=== PATIENT | female | born 1980 | race Caucasian/White ===

== ENCOUNTER 2017-06-22 15:42 | Emergency (ER) | payer BC ==
[2017-06-22 16:01] VITALS: BP 129/79
--- NOTE | 2017-06-22 16:26 | EDM.PDOC ---
ED HPI GENERAL MEDICAL PROBLEM - General Chief Complaint: ENT Problem Stated Complaint: STREP THROAT Time Seen by Provider: 06/22/17 16:10 Source of Information: Reports: Patient History Limitations: Reports: No Limitations - History of Present Illness INITIAL COMMENTS - FREE TEXT/NARRATIVE: Darlyn is a pleasant 37yo female here with 3 + day hx of worsening sore throat, ear pain, cough, headache. She has felt chilled, then hot but has not checked her temp. She has sinus pressure and associated headache. She looked in her throat this morning and saw white patches and thought she may have strep throat. She is here for testing for strep throat. She did get a flu shot. She is otherwise healthy. No chronic medical problems. Onset: Gradual Duration: Day(s): (3+) Location: Reports: Head, Other (throat, ear pain, sinus congestion/pain) Throat Pain Score (Numeric/FACES): 6 - Related Data Allergies Allergy/AdvReac Type Severity Reaction Status Date / Time codeine Allergy Nausea and Verified 06/22/17 15:56 Vomiting Home Meds: Home Meds Montelukast Sodium [Singulair] 10 mg PO DAILY 05/21/14 [History] Venlafaxine [Effexor XR] 75 mg PO DAILY 06/22/17 [History] Past Medical History Respiratory History: Reports: Asthma [employer] History: Reports: Psychiatric History: Reports: Anxiety - Past Surgical History HEENT Surgical History: Reports: SHYLA Social & Family History - Family History Family Medical History: Noncontributory Oncologic: Reports: Breast, Colon - Tobacco Use Smoking Status *Q: Current Some Day Smoker Years of Tobacco use: 20 Packs/Tins Daily: 0.5 Second Hand Smoke Exposure: No - Caffeine Use Caffeine Use: Reports: None - Alcohol Use Days Per Week of Alcohol Use: 0 - Recreational Drug Use Recreational Drug Use: No - Living Situation & Occupation Living situation: Reports: Occupation: Employed ED ROS ENT - Review of Systems Review Of Systems: See Below Constitutional: Reports: Chills, Malaise, Fatigue, Decreased Appetite HEENT: Reports: Ear Pain, Rhinitis, Sinus Problem, Throat Pain Respiratory: Reports: Cough. Denies: Shortness of Breath, Pleuritic Chest Pain , Sputum Cardiovascular: Reports: No Symptoms GI/Abdominal: Reports: No Symptoms Musculoskeletal: Reports: Other (myalgias) Psychiatric: Reports: No Symptoms ED EXAM, ENT - Physical Exam Exam: See Below Exam Limited By: No Limitations General Appearance: Alert, WD/WN, No Apparent Distress Eye Exam: Bilateral Eye: EOMI, PERRL Ears: Normal External Exam, Hearing Grossly Normal, TM Dullness, TM Erythema, TM Fluid Nose: Normal Inspection, Normal Mucousa Mouth/Throat: Normal Lips, Normal Teeth, Pharyngeal Erythema, Tonsillar Erythema , Tonsillar Exudates, Tonsillar Swelling Head: Atraumatic, Normocephalic Neck: Normal Inspection, Lymphadenopathy (L), Lymphadenopathy (R) Respiratory/Chest: No Respiratory Distress, Lungs Clear, Normal Breath Sounds Cardiovascular: Normal Peripheral Pulses, Regular Rate, Rhythm, No Edema GI/Abdominal: Normal Bowel Sounds, Soft, Non-Tender (Female) Exam: Deferred Rectal (Female) Exam: Deferred Extremities: Normal Inspection, Normal Capillary Refill Neurological: Alert, Oriented, CN II-XII Intact Skin: Warm, Dry, Intact Course - Vital Signs Last Recorded V/S: Last Vital Signs Temp 97.1 F 06/22/17 15:57 Pulse 107 H 06/22/17 15:57 Resp 18 06/22/17 15:57 BP 129/79 06/22/17 15:57 Pulse Ox 100 06/22/17 15:57 - Orders/Labs/Meds Orders: Active Orders 24 hr Category Date Time Status cefTRIAXone [Rocephin] Med 06/22/17 17:25 Stat 1 gm IM NOW STA Medication Orders Ceftriaxone Sodium (Rocephin) 1 gm IM NOW STA Stop: 06/22/17 17:26 Meds: Medications Generic Name Dose Route Start Last Admin Trade Name Nancy PRN Reason Stop Dose Admin Ceftriaxone Sodium 1 gm 06/22/17 17:25 Rocephin IM 06/22/17 17:26 NOW STA - Re-Assessments/Exams Free Text/Narrative Re-Assessment/Exam: 06/22/17 16:26 Patient with 2-3 day hx of URI symptoms evolving to throat pain, swelling, ear pain and sinus congestion/pain. Flu swab and strep screen ordered and pending. Free Text/Narrative Re-Assessment/Exam: 06/22/17 17:26 Flu screen negative Strep screen positive Departure - Departure Time of Disposition: 17:26 Disposition: Home, Self-Care 01 Condition: Good Clinical Impression: Strep throat - Discharge Information Instructions: Strep Throat Referrals: Shabnam Escamilla MD [Primary Care Provider] - Forms: ED Department Discharge Additional Instructions: Rocephin injection given for antibiotic for strep throat Push fluids Recommend no work x 24 hours Tylenol/motrin for fever, pain, achiness Follow up with Primary Care Provider if needed Can return to ER if needed for ?'s or concerns. - My Orders Last 24 Hours: My Active Orders 06/22/17 17:25 cefTRIAXone [Rocephin] 1 gm IM NOW STA - Assessment/Plan Last 24 Hours: My Active Orders 06/22/17 17:25 cefTRIAXone [Rocephin] 1 gm IM NOW STA
[2017-06-22] MEDS ORDERED: cefTRIAXone 1 GM Vial IM STA (17:25)
[2017-06-22] MEDS ORDERED: Lidocaine 1% 10 ML MDV ONE (17:43)
== END 2017-06-22 18:00 | disposition home or self-care (01) ==
LOC: JD.ED 15:42
DX: J02.0 Streptococcal pharyngitis (principal); F17.210 Nicotine dependence, cigarettes, uncomplicated; Z88.5 Allergy status to narcotic agent; Z79.899 Other long term (current) drug therapy
CPT/HCPCS: 87430; 87804; 96372; 99283; J0696; 99282